=== PATIENT | male | born 1975 | race Caucasian/White ===

== ENCOUNTER → 2021-01-13 13:54 | Outpatient (CLI) | payer OTHER, SELFPAY ==
[2021-01-13 15:10] LABS: COVID19 -Nasal RAPID Negative (Negative)
[2021-01-13 15:24] LABS: Add Manual Diff / Slide Review NO; Basophils Absolute Auto 100 /uL (0-100); Basophils Percent Auto 0.5 % (0-2); Eosinophils Absolute Auto 0 /uL (0-450); Eosinophils Percent Auto 0.4 % (2-4); Hematocrit 43.5 % (41-53); Hemoglobin 14.8 g/dL (13.5-17.5); Lymphocytes Absolute Auto 3000 /uL (1100-4500); Lymphocytes Percent Auto 27.3 % (25-40); Mean Corpuscular Hemoglobin 29.5 PG (26-34); Mean Corpuscular Volume 86.6 fL (80-100); Monocytes Absolute Auto 700 /uL (0-900); Monocytes Percent Auto 6.4 % (3-14); Neutrophils Absolute Auto 7200 /uL (1500-7000); Neutrophils Percent Auto 65.4 % (50-75); Platelet Count 333 X10^3/uL (150-400); Red Blood Cell Count 5.02 X10^6/uL (4.5-5.9); Red Cell Distribution Width 14.6 % (11.6-14.8); White Blood Cell Count 11.1 X10^3/uL (4.5-11.0)
[2021-01-13 15:43] LABS: BUN Creatinine Ratio 24.6 (6-22); Blood Urea Nitrogen 16 mg/dL (9-20); Carbon Dioxide 26 mmol/L (22-32); Chloride 101 mmol/L (98-107); Estimated Glomerular Filt Rate > 60.0 mL/min (>60); Glucose 88 mg/dL (70-100); HEMOLYSIS < 15 (0-50); Potassium 4.5 mmol/L (3.4-5.1); Sodium 137 mmol/L (137-145)
== END ==
PROVIDERS: Physician Assistant; PCP Physician Assistant; Referring Provider Orthopaedic Surgery Orthopaedic Surgery of the Spine; Visit Provider Orthopaedic Surgery Orthopaedic Surgery of the Spine
DX: Z01.812 Encounter for preprocedural laboratory examination (principal); Z20.822 Contact with and (suspected) exposure to COVID-19
CPT/HCPCS: 36415; 80048; 85025; 87635

== ENCOUNTER 2021-01-15 09:08 | Day surgery (SDC) | payer OTHER, SELFPAY ==
[2021-01-13 08:29] VITALS: BMI 38.4
[2021-01-15] VITALS (13 sets, daily range): BP systolic 116–140; BP diastolic 66–89; PULSE 73–77; RESP 10–18; TEMP 36.3–36.9; O2SAT 85–99; BMI 38.4
[2021-01-15] MEDS: LACTATED RINGERS 1,000 ML 42 ML IV ×2 (09:54→12:29)
--- NOTE | 2021-01-15 11:25 | PM.PREOP ---
Pre-operative Note COVID-19 COVID-19 status: Negative Result date/Date tested (Pos, Neg/Pending): 01/13/21 Interval Note History & Physical reviewed/Exam performed by Physician: Yes Changes to H&P: No
[2021-01-15] MEDS: CEFAZOLIN 1 GM VIAL 2 GM IV (12:04)
--- NOTE | 2021-01-15 12:19 | SUR.OPER ---
Prone on spine table, head in foam head support, padded chest and pelvic supports, gel pad at knees, lower legs supported by pillows; nipples, genitalia and toes free of pressure, arms secured on foam padded arm boards at <90 degrees abduction. Tape over blanket at thigh secured to table.
[2021-01-15] MEDS: BUPIVACAINE 0.5% W/ EPI (PF) 30 ML VIAL INJ (12:30)
[2021-01-15] MEDS: methylPREDNISolone acet DEPO 40 MG/ML VIAL IM (12:30)
--- NOTE | 2021-01-15 13:00 | PM.OP.1 ---
Operative Date/Time/Diagnoses Date of procedure: 01/15/21 Time of procedure: 12:00 Pre-op diagnosis: 1. L4-5 spinal stenosis with radiculopathy 2. L4-5 foramen stenosis Post-op diagnosis: same Procedure & Clinicians Procedure: 1. L4-5 left hemilaminectomy 2. Utilization of microsurgical technique and operating microscope Same procedure as scheduled: Yes Indications: Patient has been having chronic back pain and worsening lumbar radiculopathy. Patient has significant L4-5 left-sided foramen stenosis with significant L4 nerve root impingement. Patient failed multiple conservative management with worsening pain weakness and numbness in her lower extremity. Patient has been having difficulty performing activity of daily living. After discussing risks benefits of treatment options, patient elected proceed with surgery. Surgeon: No[employer] Special Agent: Kleber Medrano Click Yes if Unassisted: No Anesthesia Type: General Operative Notes Closure Type: primary Specimen(s): none sent Estimated Blood Loss (mL): 5 Blood products transfused: none Procedure in detail: Patient was seen in the preoperative area. Risks and benefits of the surgery was discussed with the patient. Informed consent was obtained from the patient and placed in the chart. Surgical site was marked. Patient was taken to the operative room. General anesthesia was administered. Prophylactic antibiotic was given to the patient less than 30 min before the incision was made. Patient was placed into a prone position on the Jerry table. Patient's back was then prepped and draped in the sterile fashion. Time-out was performed at this time. Using AP and lateral C-arm imaging the interval between L4-5 was identified and marked on patient's back. A 1 inch incision 1 in from midline was made on the left side. The fascia was incised in line with skin incision. Globus MARS retractors was placed inside the incision and docked onto the L4 lamina. Using microsurgical technique and operating microscope, a L4 hemilaminectomy was performed using a Kerrison rongeur. Liagamentum flavum was resected at the site of the hemilaminectomy. Partial medial facetectomy of L4-5 facet on the left was performed in order to further decompress the lateral recess and neural foramen. The L4 nerve root was significantly decompressed after the partial facetectomy involving approximately 1/3 of the facet was completed L4-5 level. It was determined additional facetectomy would render the L4-5 level grossly unstable and in order to preserve the integrity of the facet joint no additional facetectomy was performed at this time. The wound was then irrigated with sterile normal saline. 40 mg Depo-Medrol was placed into the epidural space. The deep fascia was closed with 1-0 Vicryl. The subcutaneous tissue was closed with 2-0 Vicryl. The skin was closed with skin anthony. Patient tolerated the procedure well. There were no complications. Patient was transferred recovery room in stable condition. Complications: none Post-operative Condition: stable Disposition: PACU Plan for aftercare: Discharge to home
[2021-01-15] MEDS: OXYCODONE/ACETAMINOPHEN 5/325 TABLET 2 TAB PO ×2 (13:21→13:54)
--- NOTE | 2021-01-15 13:30 | DI.RAD.S_ITS ---
PROCEDURE: XR LUMBAR SPINE 2-3V INDICATIONS: MICRO DISCECTOMY TECHNIQUE: 2 views of the lumbar spine were acquired. COMPARISON: None. FINDINGS: Spot fluoroscopic intraoperative images demonstrating placement of surgical instrumentation with the tips projecting at the L4-L5 level. Dictated by: Scot Troy M.D. on 01/15/2021 at 16:39 Approved by: Scot Troy M.D. on 01/15/2021 at 16:39
[2021-01-15] MEDS: HYDROMORPHONE 2 MG INJ IV ×2 (13:33→13:44)
[2021-01-15] MEDS: hydrOXYzine 50 MG/ML INJ IM (13:36)
== END 2021-01-15 14:32 | disposition home or self-care (01) ==
PROVIDERS: PCP Physician Assistant; Referring Provider Orthopaedic Surgery Orthopaedic Surgery of the Spine; Visit Provider Orthopaedic Surgery Orthopaedic Surgery of the Spine
PROC: (CPT 63047; principal; 2021-01-15 11:45)
DX: M48.061 Spinal stenosis, lumbar region without neurogenic claudication (principal); M54.16 Radiculopathy, lumbar region; I10 Essential (primary) hypertension; F32.9 Major depressive disorder, single episode, unspecified; M79.7 Fibromyalgia; G43.909 Migraine, unspecified, not intractable, without status migrainosus
CPT/HCPCS: 63047; 72100; 76000; J0690; J1030; J1100; J1170; J2250; J2405; J2704; J3010; J3410